=== PATIENT | female | born 1960 | race Caucasian/White ===

== ENCOUNTER 2021-01-12 12:42 | Emergency (ER) | payer BC ==
[~2021-01-12] VITALS: Ht 157.5 cm; Wt 61.0 kg
[2021-01-12] MEDS ORDERED: AMLO-179 PO (12:51)
[2021-01-12] MEDS ORDERED: ATEN25TA PO (12:51)
[2021-01-12] MEDS ORDERED: LIDOCAINE 5% (LIDODERM) PATCH TD ONE (16:10)
[2021-01-12] MEDS ORDERED: KETOROLAC 30 MG/ML 1ML VIAL IV ONE (16:10)
[2021-01-12] MEDS ORDERED: methocarbamoL 750 MG TAB PO ONE (16:10)
[2021-01-12] MEDS ORDERED: ISOVUE-370 76% 100ML VIAL As Ordered ONE (16:51)
[2021-01-12 16:56] LABS: BASO % 0.3 % (0.0-1.0); EOS # 0.1 10^3/uL (0.0-0.5); EOS % 0.9 % (0.0-3.0); HEMATOCRIT 39.5 % (36.0-47.0); HEMOGLOBIN 12.8 g/dl (12.0-15.5); LYMPH # 2.4 10^3/uL (1.5-5.0); LYMPH % 26.7 % (24.0-44.0); MEAN CORPUSCULAR HGB CONC 32.4 g/dl (32.0-36.5); MEAN CORPUSCULAR VOLUME 92.7 fl (80.0-96.0); MONO # 0.5 10^3/uL (0.0-0.8); MONO % 5.6 % (2.0-8.0); NEUTROPHILS % 66.4 % (36.0-66.0); PLATELET COUNT, AUTOMATED 187 10^3/uL (150-450); RED BLOOD COUNT 4.26 10^6/uL (4.00-5.40); WHITE BLOOD COUNT 9.1 10^3/uL (4.0-10.0)
[2021-01-12 17:09] LABS: INR 0.92; PROTHROMBIN TIME 12.6 SECONDS (12.5-14.3)
[2021-01-12 17:10] LABS: PARTIAL THROMBOPLASTIN TIME 30.6 SECONDS (24.2-38.5)
[2021-01-12 17:17] LABS: CK-MB VALUE MASS < 1.0 NG/ML (<3.6); CPK CREATINE PHOSPHOKINASE 45 U/L (26-192); MB/CK RELATIVE INDEX 2.22 (< OR =4); NT-PRO BNP 114 PG/ML (<125); TROPONIN I < 0.02 NG/ML (< 0.10)
--- NOTE | 2021-01-12 17:46 | REPVR ---
PROCEDURE INFORMATION: Exam: CTA Chest With Contrast Exam date and time: 01/12/2021 5:00 PM Age: 60 years old Clinical indication: Pain; Other: Mid back to chest; Additional info: Mid back to chest pain, swollen ankles, R/O aneurysm, pe TECHNIQUE: Imaging protocol: Computed tomographic angiography of the chest with contrast. 3D rendering (Not supervised by radiologist): MIP and/or 3D reconstructed images were created by the technologist. Radiation optimization: All CT scans at this facility use at least one of these dose optimization techniques: automated exposure control; mA and/or kV adjustment per patient size (includes targeted exams where dose is matched to clinical indication); or iterative reconstruction. Contrast material: ISOVUE 370; Contrast volume: 75 ml; Contrast route: INTRAVENOUS (IV); COMPARISON: No relevant prior studies available. FINDINGS: Pulmonary arteries: No focal pulmonary artery filling defect to suggest acute pulmonary embolus. Aorta: No thoracic aortic aneurysm or dissection. Lungs: Pulmonary vascular/interstitial pattern does not suggest active pulmonary edema. No suspicious lung mass or air space process. No central endobronchial lesion. Incidental posterior left apical benign calcified lung granuloma. Pleural spaces: No pleural effusion or pneumothorax. Heart: No overt cardiac enlargement or abnormal volume of pericardial fluid. Mediastinal space: Small hiatal hernia is present. Lymph nodes: No enlarged mediastinal lymph nodes. Pancreas: Multiple pancreatic calcifications and segmental duct dilatation suggesting chronic pancreatitis with no evidence of an acute component. Bones/joints: Bony structures show no acute fracture or destructive process. Soft tissues: No concerning focal abnormality of the extra-abdominal and pelvic soft tissues. IMPRESSION: 1. No evidence of acute pulmonary embolus, thoracic aortic aneurysm or dissection. 2. No other acute or concerning focal intrathoracic abnormality. 3. Hiatal hernia which can be a source of chest pain in the setting of GE reflux Electronically signed by: Brennan Baker On 01/12/2021 17:46:36 PM
[2021-01-12] MEDS ORDERED: GI COCKTAIL 50ML BTL(HYOSCYAMINE/MAALOX/LIDOCAINE VISCOUS)(1:3:1) PO ONE (18:00)
[2021-01-12] MEDS ORDERED: OMEPRAZOLE 20 MG CAP PO ONE (18:00)
[2021-01-12] MEDS ORDERED: DOXYCYCLINE HYCLATE 100MG TABLET PO ONE (19:00)
[2021-01-12] MEDS ORDERED: NITROFURANTOIN (MACROBID) 100 MG CAP PO ONE (19:00)
[2021-01-12] MEDS ORDERED: METH-1164 PO (19:11)
[2021-01-12] MEDS ORDERED: DOXY-350 PO (19:11)
[2021-01-12] MEDS ORDERED: MACR100C43 PO (19:11)
[2021-01-12] MEDS ORDERED: ASPE4PAD TOP (19:11)
[2021-01-12 19:29] VITALS: BP 161/68
[2021-01-13] MEDS ORDERED: **NOTE PATIENT COMMENT** MISC XX ONE (04:00)
--- NOTE | 2021-01-14 05:55 | ECGEPIP ---
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
== END 2021-01-12 19:31 | disposition home or self-care (01) ==
LOC: M ED 12:42
DX: N39.0 Urinary tract infection, site not specified (principal); M54.6 Pain in thoracic spine; Z88.0 Allergy status to penicillin; Z88.1 Allergy status to other antibiotic agents; Z88.2 Allergy status to sulfonamides; Z88.8 Allergy status to other drugs, medicaments and biological substances
CPT/HCPCS: 71275; 80047; 81001; 82550; 82553; 83880; 84484; 85025; 85610; 85730; 87088; 87186; 93005; 96374; 99284; J1885; Q9967